=== PATIENT | male | born 1960 | race Caucasian/White ===

== ENCOUNTER 2016-10-01 11:19 | Emergency (ER) | payer BC ==
[2016-10-01 11:35] VITALS: BP 173/91
--- OUTSIDE RECORDS SUMMARY | 2016-10-01 11:52 | XMS REPORT | Continuity of Care Document ---
:1960 Author Organization [facility] ([facility]) Address [address] [place] [address] Phone [phone] Care Team Providers Name Role Phone Unavailable Primary Care Provider Unavailable Source Comments This disclosure is being made pursuant to the Care Everywhere program, applicable federal and state laws, and may not contain all informaitonavailable regarding this patient.[facility] ([facility]) Active Allergies and Adverse Reactions Not on File Current Medications Not on file Active Problems Not on file Social History Tobacco Use Types Packs/Day Years Used Date Never Assessed Plan of Care Health Maintenance Due Date Last Done Comments HCV Screening 1960 Hepatitis B Vaccine (1 of 3 - Primary Series) 1960 Tdap Vaccine 1970 Lipid Disorder Screening 1977 MMR Vaccine 1977 Td Vaccine 1977 Colonoscopy 09/14/2009 Prostate Cancer Screening 2009 Influenza Vaccine: Seasonal (#1) 02/21/2016 Results from Last 3 Months Not on file
--- NOTE | 2016-10-01 12:12 | ERNOTE ---
Lower Extremity HPI - Narrative Date of Service: 10/01/16 - General Lower Extremities Pain: 1st toe: left Time Seen by Provider: 10/01/16 11:45 Source: patient Exam Limitations: no limitations - Immun/Allergies/Home Medications Immunizations: IMMUNIZATION HX Immunizations Up to Date Yes History of Influenza Vaccine No Hx Pneumococcal Vaccination No Allergies/Adverse Reactions: Allergies Allergy/AdvReac Type Severity Reaction Status Date / Time Penicillins Allergy Verified 10/01/16 11:35 Sulfa (Sulfonamide Allergy Verified 10/01/16 11:35 Antibiotics) Home Medications: HOME MEDICATIONS Metformin HCl [Metformin HCl ER] 1,000 mg PO BID 10/01/16 [Last Taken Unknown] - History of Present Illness Narrative: Diabetes, recently well controlled. Wears boots. In and out of the truck multiple times all day. 2-3 days ago, noticed discoloration and pain and tenderness, left great toe, especially distal tip. Worried might lose foot. Occurred: other Method of Injury: Reports: other - unknown Reason for Fall: Reports: unknown - no fall Loss of Consciousness: Reports: no loss of consciousness Modifying Factors - (Improves): Reports: rest Modifying Factors - (Worsens): Reports: jarring, movement Associated Symptoms: Denies: unable to bear weight, other injuries Other Injuries: Denies: none Subsequent Symptoms: Denies: sensory loss, numbness, motor loss Prior Treament: Denies: currently on antibiotics Review of Systems - Review of Systems Constitutional: Present: no symptoms reported EYE: Present: no symptoms reported ENT: Present: no symptoms reported Respiratory: Present: no symptoms reported Cardiology: Present: no symptoms reported Gastrointestinal/Abdominal: Present: no symptoms reported Genitourinary: Present: no symptoms reported Musculoskeletal: Present: See HPI Skin: Present: no symptoms reported Neurological: Present: no symptoms reported Endocrine: Present: no symptoms reported Hematologic/Lymphatic: Present: no symptoms reported Psych: Present: no symptoms reported All Other Systems: All systems neg except as marked - Patient's Past Medical History Patient History - Medical: No pertinent hx, Diabetes Type 2 Patient History - Cardiac/Respiratory: No pertinent hx Patient History - Cancer: No Hx of Cancer Patient History - Surgical Procedures: Appendectomy Patient History - Other: None - Social History Smoking Status: Former smoker - Immunizations Immunizations Up to Date: Yes Hx Pneumococcal Vaccination: No History of Influenza Vaccine: No Physical Exam - Physical Exam General Appearance: Present: wd/wn, alert, no apparent distress Eye Exam: Normal inspection: bilateral, PERRL: bilateral, EOMI: bilateral Ears, Nose, Throat: Present: normal ENT inspection Neck: Present: normal inspection Respiratory: Present: no respiratory distress Cardiovascular/Chest: Present: regular rate, rhythm Back Exam: Present: normal inspection Extremity Exam: Present: other - brusing at IP joint left great toe, tender, no increased warmth. good pulses in foot, good capillary fill. slight bruising, base of left great toenail. Distal toe very tender. Neurological Exam: Present: alert, oriented, normal mood/affect, no motor/ sensory deficits Skin Exam: Present: normal color, warm/dry ED Progress - Results and Orders Patient's Lab Results:: I have reviewed the patient's lab results. - Vital Signs Patient's Vital Signs:: I have reviewed the patient's vital signs. Vital Signs: Vital Signs 10/01/16 11:31 Temperature 36.1 C L Pulse Rate 75 Respiratory 14 Rate Blood Pressure 173/91 O2 Sat by Pulse 96 Oximetry - X-Ray X-Ray #1 X-Ray: foot Interpretation: Interp. by me - tiny bone cyst distal portion distal phalanx great toe - Progress/Reassessment Chief Complaint: Foot Injury/Pain Departure Clinical Impression: Contusion Qualifiers: Encounter type: initial encounter Contusion area: toe Toe: great toe Damage to nail status: with damage Laterality: left Qualified Code(s): S90.212A - Contusion of left great toe with damage to nail, initial encounter - Departure Disposition: Home self-care Condition: Good Instructions: Contusion, [id number] Additional Instructions: Followup with your doctor next week sometime. Referrals: Eddie Dominguez DO [Primary Care Provider] -
[2016-10-01 12:13] LABS: Hematocrit 47.6 % (42.0-52.0); Mean Cell Volume 83.5 fl (78-100); Mean Corpuscular Hemoglobin 28.1 pg (27-31); Mean Corpuscular Hgb Conc 33.6 g/dl (32-36); Mean Platelet Volume 9.6 fl (6.0-9.5); Neutrophil # 3.9 K/mm3 (1.3-6.0); Neutrophil % 67.6 % (42-75.0); Platelet Count 210 K/mm3 (150-450); Red Cell Distribution Width 13.8 % (11.5-14.0); White Blood Count 5.7 K/mm3 (4.0-10.5)
[2016-10-01 12:27] LABS: Albumin * 4.2 gm/dl (3.4-5.0); BUN/Creatinine Ratio 12.8 (9.0-21.6); Bilirubin, Total 0.5 mg/dL (0.0-1.1); CRP 0.7 mg/dL (0.0-0.9); Ca. Corrected For Albumin 8.7 mg/dL (8.4-10.2); Calcium * 9.2 mg/dL (7.9-10.9); Carbon Dioxide 26.1 mmol/L (24-32.6); Potassium 4.1 mmol/L (3.4-4.6); Total Protein 8.2 gm/dL (6.2-8.2)
== END 2016-10-01 13:04 | disposition home or self-care (01) ==
LOC: ER 11:19
DX: S90.212A Contusion of left great toe with damage to nail, initial encounter (principal); E11.9 Type 2 diabetes mellitus without complications